=== PATIENT | female | born 1980 | race Caucasian/White ===

== ENCOUNTER → 2017-11-06 | Outpatient (CLI) | payer OTHER ==
[~2017-11-06] MED LIST: AC325T PO; ACHD5005 PO; DOCU100C37 PO; FAMO20TA5 PO; FERR-57 PO; HYDR-3714 PO; IBUP-1773 PO; Ibuprofen PO; PREN1TAB19 PO
--- NOTE | 2017-11-06 12:51 | Diagnostic Imaging Report ---
INDICATION: IUD with nonvisualized strings on physical exam. TECHNIQUE: Transabdominal and transvaginal sonography was performed. FINDINGS: The uterus measures 7.7 x 3.9 x 4.3 cm. There is an IUD within the endometrial canal; however, the inferior component of the IUD does appear to protrude into the myometrium towards the right side. No perforation is seen. Endometrial thickness is 4 mm. The right ovary measures 1.8 x 2.5 x 2.4 cm and the left ovary measures 2.6 x 2.5 x 2.8 cm. There are small follicles bilaterally. Both ovaries demonstrate normal blood flow. No adnexal mass or free fluid is seen. IMPRESSION: Endometrial IUD appears to have the inferior component extending into the uterine myometrium, as described, but no full-thickness uterine perforation is seen. Dictated by: Dictated on workstation # [id number]
== END ==
LOC: RAD 09:39
PROVIDERS: ATTEND Obstetrics & Gynecology
DX: T83.32XA Displacement of intrauterine contraceptive device, initial encounter (principal)
CPT/HCPCS: 76830; 76856

== ENCOUNTER 2018-01-13 05:38 | Outpatient (CLI) | payer OTHER ==
[~2018-01-13] VITALS: Ht 162.6 cm; Wt 63.7 kg
[2018-01-13] MEDS ORDERED: PHEN-483 PO (13:25)
[2018-01-22] MEDS ORDERED: ACHD5005 PO (07:15)
[2018-01-22] MEDS ORDERED: IBUP-1773 PO (07:15)
== END 2018-01-13 13:45 ==
LOC: PREOP 05:38
PROVIDERS: ATTEND Obstetrics & Gynecology
DX: Z01.818 Encounter for other preprocedural examination (principal); R10.2 Pelvic and perineal pain

== ENCOUNTER 2018-05-01 14:46 | Outpatient (CLI) | payer OTHER ==
[~2018-05-01] VITALS: Ht 162.6 cm; Wt 71.2 kg
[~2018-05-01 14:46] MED LIST changes: +PHEN-483 PO
[2018-05-01 14:54] VITALS: BP 143/91
== END 2018-05-01 15:07 | disposition home or self-care (01) ==
LOC: PREOP 14:46
PROVIDERS: ATTEND Obstetrics & Gynecology
DX: Z01.818 Encounter for other preprocedural examination (principal)
CPT/HCPCS: 87081

== ENCOUNTER → 2022-03-15 | Outpatient (CLI) | payer OTHER ==
[~2022-03-15] MED LIST changes: +HYDR-34 PO; +IBUP-844 PO; +SIME80TA16 PO
--- NOTE | 2022-03-15 10:01 | Diagnostic Imaging Report ---
Indication: Routine screening. No prior mammograms are available for comparison. This is a baseline study. 2-D and 3-D bilateral screening mammography was performed with CAD. CAD is utilized. The current study was also evaluated with a Computer Aided Detection (CAD) system. Both breasts are heterogeneously dense, limiting the sensitivity of mammography. No mass or malignant-appearing microcalcifications are seen. Axillae are unremarkable. IMPRESSION: BI-RADS Category 1 No mammographic features suspicious for malignancy are identified. ACR BI-RADS Category 1: Negative. Result letter will be mailed to the patient. Note: At least 10% of breast cancer is not imaged by mammography. Dictated by: Dictated on workstation # [id number]
== END ==
LOC: RAD 08:01
PROVIDERS: ATTEND Obstetrics & Gynecology
DX: Z12.31 Encounter for screening mammogram for malignant neoplasm of breast (principal)
CPT/HCPCS: 77063; 77067

== ENCOUNTER → 2023-04-25 | Outpatient (CLI) | payer OTHER ==
--- NOTE | 2023-04-25 13:08 | Diagnostic Imaging Report ---
Indication: Routine screening. Comparison is made with prior mammogram 03/15/2022. 2-D and 3-D bilateral screening mammography was performed with CAD. Both breasts are heterogeneously dense, limiting the sensitivity of mammography. The parenchymal pattern is stable. No mass or malignant-appearing microcalcifications are seen. Axillae are unremarkable. IMPRESSION: BI-RADS Category 1 No mammographic features suspicious for malignancy are identified. ACR BI-RADS Category 1: Negative. Result letter will be mailed to the patient. Note: At least 10% of breast cancer is not imaged by mammography. Dictated by: Dictated on workstation # [id number]
== END ==
LOC: RAD 08:50
PROVIDERS: ATTEND Obstetrics & Gynecology
DX: Z12.31 Encounter for screening mammogram for malignant neoplasm of breast (principal)
CPT/HCPCS: 77063; 77067

== ENCOUNTER 2023-05-21 16:18 | Observation (INO) | payer OTHER ==
[~2023-05-21] VITALS: Ht 162 cm; Wt 69.4 kg
[2023-05-21] MEDS ORDERED: KETOROLAC INJ 15 MG/ML VIAL IVP ONE (16:45)
[2023-05-21] MEDS ORDERED: NS IV 1000 ML 1,000 ML IV SCH ×2 (16:45→17:45)
[2023-05-21] MEDS ORDERED: ONDANSETRON INJECTION 4 MG/2 ML (SDV) IVP ONE (16:45)
[2023-05-21 16:48] LABS: BASOPHILS # (AUTO) 0.1 10^3/uL (0.0-0.1); BASOPHILS % (AUTO) 0 % (0-10); EOSINOPHILS # (AUTO) 0.1 10^3/uL (0.0-0.3); EOSINOPHILS % (AUTO) 1 % (0-10); HEMATOCRIT 33 % (35-52); HEMOGLOBIN 11.2 g/dL (11.5-16.0); LYMPHOCYTES # (AUTO) 1.7 10^3/uL (1.0-4.0); LYMPHOCYTES % (AUTO) 10 % (12-44); MEAN CORPUSCULAR HEMOGLOBIN 28 pg (25-34); MEAN CORPUSCULAR HGB CONC 34 g/dL (32-36); MEAN CORPUSCULAR VOLUME 82 fL (80-99); MEAN PLATELET VOLUME 10.1 fL (9.0-12.2); MONOCYTES # (AUTO) 1.8 10^3/uL (0.0-1.0); MONOCYTES % (AUTO) 10 % (0-12); NEUTROPHILS # (AUTO) 13.2 10^3/uL (1.8-7.8); NEUTROPHILS % (AUTO) 78 % (42-75); PLATELET COUNT 342 10^3/uL (130-400); WHITE BLOOD COUNT 17.1 10^3/uL (4.3-11.0)
--- NOTE | 2023-05-21 16:59 | ED Abdominal Pain ---
General Chief Complaint: Fever-Adult/Adol Stated Complaint: FEVER N/V/D ABD PAIN Nursing Triage Note: PT AMB TO [facility] 6 WITH C/O FEVER SINCE LAST FRIDAY, ABD PAIN STARTING FRIDAY. PT GIVEN FLUIDS AND ZOFRAN AT [facility] YESTERADY. PT STATES HER FEVER WAS 104 TODAY Source of Information: Patient Exam Limitations: No Limitations History of Present Illness Date Seen by Provider: May 21, 2023 Time Seen by Provider: 16:30 Initial Comments 42-year-old female presents to the ER with complaints of not feeling well since evening, 05/15/2023. She reports she started having diarrhea on , and then developed a fever on Friday and left lower and left upper quadrant abdominal pain. States she is now having pain in her entire abdomen. She also reports vomiting starting yesterday. She denies dysuria. She was seen at [facility] yesterday and told she had a viral gastroenteritis. They gave her IV fluids and Zofran. They tested her for flu which was negative, they were unable to test her for COVID because they did not have any tests. Allergies and Home Medications Allergies Coded Allergies: No Known Drug Allergies (Unverified , 01/13/18) Patient Home Medication List Home Medication List Reviewed: Yes Cephalexin (Cephalexin) 500 Mg Tablet, 500 MG PO BID Prescribed by: NEELAM HALEY on 05/23/23 1058 Discontinued Medications Docusate Sodium (Docusate Sodium) 100 Mg Capsule, 100 MG PO BID PRN for CONSTIPATION-1ST LINE Discontinued Reason: No Longer Taking Prescribed by: KATHY SAUCEDA on 05/07/18917 Last Action: Discontinued Hydrocodone Bit/Acetaminophen (Lortab 7.5 Mg Tablet) 1 Ea Tablet, 2 EA PO Q6H PRN for Pain-See Instructions Discontinued Reason: No Longer Taking Prescribed by: KATHY SAUCEDA on 05/07/18917 Last Action: Discontinued Ibuprofen (Ibu) 600 Mg Tablet, 600 MG PO Q6H PRN for PAIN-MODERATE Discontinued Reason: No Longer Taking Prescribed by: KATHY SAUCEDA on 05/07/18917 Last Action: Discontinued Simethicone (Simethicone) 80 Mg Tab.chew, 40 MG PO TID PRN for INDIGESTION 2ND LINE Discontinued Reason: No Longer Taking Prescribed by: KATHY SAUCEDA on 05/07/18917 Last Action: Discontinued Review of Systems Review of Systems Constitutional: see HPI Past Guasqlr-Nrowya-Lhfyhc Hx Patient Social History Tobacco Use?: Yes Tobacco type used: Cigarettes Substance use?: No Alcohol Use?: No Pt feels they are or have been: No Immunizations Up To Date Tetanus Booster (TDap): Less than 5yrs PED Vaccines UTD: No Seasonal Allergies Seasonal Allergies: No Past Medical History Surgery/Hospitalization HX: X3, PARTIAL HYST Surgeries: Yes (LEEP, C/S X3, salpingectomy, wisdom teeth) Respiratory: No Cardiac: No Neurological: No Reproductive Disorders: Yes (PELVIC PAIN) Female Reproductive Disorders: Denies Sexually Transmitted Disease: No HIV/AIDS: No Genitourinary: No Gastrointestinal: Yes Chronic Constipation Musculoskeletal: No Endocrine: No Loss of Vision: Denies Hearing Impairment: Denies Cancer: No Psychosocial: No Integumentary: No Blood Disorders: Yes (ANEMIA-DURING ) Adverse Reaction/Blood Tranf: No (N/A) Family Medical History Diabetes mellitus 19 FATHER Hypertension 19 MOTHER Physical Exam Vital Signs Vital Signs - First Documented 05/21/23 16:25 Temp 37.3 Pulse 87 Resp 16 B/P (MAP) 125/92 (103) Pulse Ox 98 Capillary Refill : Height/Weight/BMI Height: 5'4.00" Weight: 157lbs. 0.0oz. 71.450800jn; 24.00 BMI Method: General Appearance: WD/WN, no apparent distress Neck: supple, normal inspection Respiratory: lungs clear, normal breath sounds, no respiratory distress, no accessory muscle use Cardiovascular: regular rate, rhythm Gastrointestinal: normal bowel sounds, soft; No guarding, No rebound; tenderness (All 4 quadrants) Extremities: normal range of motion, normal inspection Neurologic/Psychiatric: alert, normal mood/affect Skin: normal color, warm/dry Focused Exam Lactate Level 05/21/23 18:11: Lactic Acid Level 0.92 Lactic Acid Level Laboratory Tests Test 05/21/23 18:11 Lactic Acid Level 0.92 MMOL/L (0.50-2.00) Progress/Results/Core Measures Results/Orders Lab Results Laboratory Tests Test 05/21/23 16:40 05/21/23 17:02 05/21/23 18:11 Range/Units White Blood Count 17.1 H 4.3-11.0 10^3/uL Red Blood Count 3.99 3.80-5.11 10^6/uL Hemoglobin 11.2 L 11.5-16.0 g/dL Hematocrit 33 L 35-52 % Mean Corpuscular Volume 82 80-99 fL Mean Corpuscular Hemoglobin 28 25-34 pg Mean Corpuscular Hemoglobin Concent 34 32-36 g/dL Red Cell Distribution Width 14.0 10.0-14.5 % Platelet Count 342 130-400 10^3/uL Mean Platelet Volume 10.1 9.0-12.2 fL Immature Granulocyte % (Auto) 1 % Neutrophils (%) (Auto) 78 H 42-75 % Lymphocytes (%) (Auto) 10 L 12-44 % Monocytes (%) (Auto) 10 0-12 % Eosinophils (%) (Auto) 1 0-10 % Basophils (%) (Auto) 0 0-10 % Neutrophils # (Auto) 13.2 H 1.8-7.8 10^3/uL Lymphocytes # (Auto) 1.7 1.0-4.0 10^3/uL Monocytes # (Auto) 1.8 H 0.0-1.0 10^3/uL Eosinophils # (Auto) 0.1 0.0-0.3 10^3/uL Basophils # (Auto) 0.1 0.0-0.1 10^3/uL Immature Granulocyte # (Auto) 0.1 0.0-0.1 10^3/uL Sodium Level 135 135-145 MMOL/L Potassium Level 2.8 L 3.6-5.0 MMOL/L Chloride Level 103 98-107 MMOL/L Carbon Dioxide Level 19 L 21-32 MMOL/L Anion Gap 13 5-14 MMOL/L Blood Urea Nitrogen 39 H 7-18 MG/DL Creatinine 1.99 H 0.60-1.30 MG/DL Estimat Glomerular Filtration Rate 32 BUN/Creatinine Ratio 20 Glucose Level 152 H 70-105 MG/DL Calcium Level 9.4 8.5-10.1 MG/DL Corrected Calcium 10.0 8.5-10.1 MG/DL Total Bilirubin 0.5 0.1-1.0 MG/DL Aspartate Amino Transf (AST/SGOT) 37 H 5-34 U/L Alanine Aminotransferase (ALT/SGPT) 84 H 0-55 U/L Alkaline Phosphatase 200 H 40-136 U/L C-Reactive Protein High Sensitivity 28.93 H 0.00-0.50 MG/DL Total Protein 6.8 6.4-8.2 GM/DL Albumin 3.3 3.2-4.5 GM/DL Lipase 21 8-78 U/L Influenza Type A (RT-PCR) Not Detected Not Detecte Influenza Type B (RT-PCR) Not Detected Not Detecte SARS-CoV-2 RNA (RT-PCR) Not Detected Not Detecte Urine Color YELLOW Urine Clarity CLOUDY Urine pH 6.0 5-9 Urine Specific Bascom 1.015 L 1.016-1.022 Urine Protein 2+ H NEGATIVE Urine Glucose (UA) NEGATIVE NEGATIVE Urine Ketones NEGATIVE NEGATIVE Urine Nitrite NEGATIVE NEGATIVE Urine Bilirubin 1+ H NEGATIVE Urine Urobilinogen 2.0 < = 1.0 MG/DL Urine Leukocyte Esterase 3+ H NEGATIVE Urine RBC (Auto) 2+ H NEGATIVE Urine RBC 5-10 H /HPF Urine WBC TNTC H /HPF Urine Squamous Epithelial Cells 5-10 /HPF Urine Crystals NONE /LPF Urine Bacteria MODERATE H /HPF Urine Casts NONE /LPF Urine Mucus NEGATIVE /LPF Urine Culture Indicated YES Lactic Acid Level 0.92 0.50-2.00 MMOL/L My Orders Orders - HANDY FUENTES APRN Comprehensive Metabolic Panel (05/21/23 16:29) Lipase (05/21/23 16:29) Ua Culture If Indicated (05/21/23 16:29) Urine Bedside (05/21/23 16:29) Ed Iv/Invasive Line Start (05/21/23 16:29) Cbc With Automated Diff (05/21/23 16:29) Hs C Reactive Protein (05/21/23 16:34) Ns Iv 1000 Ml (Ns Iv 1000 Ml) (05/21/23 16:45) Covid 19 Inhouse Test (05/21/23 16:34) Influenza A And B By Pcr (05/21/23 16:34) Ondansetron Injection (Ondansetron Inj (05/21/23 16:45) Ketorolac Injection (Ketorolac Injection (05/21/23 16:45) Urine Culture (05/21/23 17:02) Blood Culture (05/21/23 17:40) Lactic Acid Analyzer (05/21/23 17:40) Ct Abdomen/Pelvis Wo (05/21/23 17:43) Ns Iv 1000 Ml (Ns Iv 1000 Ml) (05/21/23 17:45) Ceftriaxone Iv/Im (Ceftriaxone Iv/Im) (05/21/23 17:45) Potassium Chloride (Tablet) (Potassium C (05/21/23 18:30) Ed Admission (Communication) (05/21/23 18:22) Medications Given in ED Current Medications Medications Dose Ordered Sig/Nohemi Route Start Time Stop Time Status Last Admin Dose Admin Ketorolac Tromethamine 15 mg ONCE ONCE IVP 05/21/23 16:45 05/21/23 16:46 DC 05/21/23 16:59 15 MG Ondansetron HCl 4 mg ONCE ONCE IVP 05/21/23 16:45 05/21/23 16:46 DC 05/21/23 16:59 4 MG Potassium Chloride 40 meq ONCE ONCE PO 05/21/23 18:30 05/21/23 18:31 DC 05/21/23 18:30 40 MEQ Vital Signs/I&O 05/21/23 16:25 Temp 37.3 Pulse 87 Resp 16 B/P (MAP) 125/92 (103) Pulse Ox 98 Blood Pressure Mean: 103 Progress Progress Note : Progress Note Patient seen and evaluated, resting in bed, no acute distress. Based on exam and symptoms, differential diagnosis includes but is not limited to COVID, flu, gastroenteritis, appendicitis, pyelonephritis. Work-up initiated including CBC, CMP, lipase, UA, CT abdomen pelvis. IV fluids, Zofran, Toradol ordered. 1830 Labs reviewed. CBC shows elevated WBC 17.1. CMP shows decreased potassium 2.8. Oral potassium has also been ordered. Elevated BUN 39, elevated creatinine 1.99, decreased GFR 32, glucose elevated 152, AST and ALT slightly elevated. Alkaline phosphatase elevated 200. CRP elevated 28.93. Lipase normal. Urinalysis shows 2+ protein, 1+ bilirubin, 3+ leukocytes, 2+ RBCs, too many to count WBCs, moderate bacteria. COVID and flu negative. Lactic acid and blood cultures x2 ordered due to abnormal labs. Lactic acid was normal. CT abdomen pelvis was switched to a noncontrast scan due to decreased kidney function. It shows asymmetric edematous enlargement of the left kidney with mild hydronephrosis and asymmetric stranding of the perinephric fat. No obstructive calculi are seen. Findings could be due to recent passage of a kidney stone or pyelonephritis. The appendix cannot be adequately identified, but there is no pericecal inflammation. Second liter of IV fluid has been ordered for decreased kidney function. No previous CMP available for comparison, but patient declines any past medical history or previous decreased kidney function, decreased kidney function is likely acute and due to dehydration and infection. I called and spoke with Dr. Haley, hospitalist, for admission for pyelonephritis, acute kidney injury, and hypokalemia. She agrees to admit patient to [facility] for observation. Dr. Haley would like me to place bridge orders. Departure Communication (Admissions) Time/Spoke to Admitting Phy: 18:19 Dr. Haley, hospitalist, see progress note. Impression Primary Impression: Pyelonephritis Additional Impressions: Acute kidney injury Hypokalemia Disposition: ADMITTED INPATIENT Condition: Stable Admissions Decision to Admit Reason: Admit from ER (General) Decision to Admit/Date: May 21, 2023 Time/Decision to Admit Time: 18:19 Departure-Patient Inst. Referrals: NO,LOCAL PHYSICIAN (PCP/Family) Primary Care Physician Scripts Cephalexin (Cephalexin) 500 Mg Tablet 500 MG PO BID, #10 TAB Prov: NEELAM HALEY MD 05/23/23 HANDY FUENTES APRN May 21, 2023 16:59
[2023-05-21 17:29] LABS: ALBUMIN 3.3 GM/DL (3.2-4.5); BILIRUBIN,TOTAL 0.5 MG/DL (0.1-1.0); CALCIUM 9.4 MG/DL (8.5-10.1); CREATININE SERUM 1.99 MG/DL (0.60-1.30); POTASSIUM 2.8 MMOL/L (3.6-5.0); TOTAL PROTEIN 6.8 GM/DL (6.4-8.2)
[2023-05-21 17:36] LABS: CLARITY,URINE CLOUDY; COLOR,URINE YELLOW
[2023-05-21 17:37] LABS: BACTERIA,URINE MODERATE /HPF; BILIRUBIN,URINE 1+ (NEGATIVE); GLUCOSE, URINE (UA) NEGATIVE (NEGATIVE); KETONES,URINE NEGATIVE (NEGATIVE); LEUKOCYTE ESTERASE ,URINE 3+ (NEGATIVE); NITRITE,URINE NEGATIVE (NEGATIVE); PROTEIN,URINE 2+ (NEGATIVE); WBC,URINE TNTC /HPF
[2023-05-21] MEDS ORDERED: cefTRIAXone IV/IM 1,000 MG in NS (IVPB) 50 ML 50 ML IV ONE (17:45)
--- NOTE | 2023-05-21 18:07 | Diagnostic Imaging Report ---
PROCEDURE: CT abdomen and pelvis without contrast. TECHNIQUE: Multiple contiguous axial images were obtained through the abdomen and pelvis without the use of intravenous contrast. Auto Exposure Controls were utilized during the CT exam to meet ALARA standards for radiation dose reduction. INDICATION: Fever. Abdominal pain. COMPARISON: None. FINDINGS: Included portions of the lung bases are clear. CT ABDOMEN: There is asymmetric edematous enlargement of the left kidney. There is also subtle asymmetric stranding of the perinephric fat on the left. There may be slight left-sided hydronephrosis. Despite this, no renal or ureteral calculi are seen on either side. The adrenal glands, spleen, pancreas, and liver have an unremarkable noncontrast CT appearance. Small bowel loops are nondilated. Normal appendix cannot be adequately identified, but there is no pericecal inflammation. There is no loculated fluid collection, free fluid, or free air within the abdomen. No abnormal mesenteric or retroperitoneal adenopathy is seen. Osseous structures show no acute abnormalities. CT PELVIS: Urinary bladder is unopacified. No calculi are seen within the urinary bladder. There is no loculated fluid collection, free fluid, or free air. No abnormal adenopathy is identified. Osseous structures show no acute abnormalities. IMPRESSION: 1. Asymmetric edematous enlargement of the left kidney with mild hydronephrosis and asymmetric stranding of the perinephric fat. No obstructive calculi are seen. Findings could be on the basis of recent passage of calculus. UTI may have a similar appearance. Clinical correlation is advised. Dictated by: Dictated on workstation # [id number]
[2023-05-21] MEDS ORDERED: POTASSIUM CHLORIDE 20 MEQ TABLET PO ONE (18:30)
[2023-05-21] MEDS ORDERED: KETOROLAC INJ 15 MG/ML VIAL IV PRN (19:45)
[2023-05-21] MEDS ORDERED: PROMETHAZINE INJ 25 MG/ML VIAL IV PRN (19:45)
[2023-05-21] MEDS ORDERED: ACETAMINOPHEN 500 MG TABLET PO PRN (19:45)
[2023-05-21] MEDS ORDERED: fentaNYL INJECTION 100 MCG/2 ML VIAL IV PRN (19:45)
[2023-05-21 20:10] VITALS: BP 120/84
[2023-05-21] MEDS: NS IV 1000 ML 1,000 ML IV SCH ×2 (21:03→23:11)
[2023-05-21] MEDS: HYDROcodone/ACETAMINOPHEN 5 MG/325 MG TABLET PO PRN (21:09)
[2023-05-21 23:07] VITALS: BP 121/73
[2023-05-22] MEDS: ONDANSETRON INJECTION 4 MG/2 ML (SDV) IV PRN ×2 (02:40→16:46)
[2023-05-22 03:50] VITALS: BP 147/83
[2023-05-22 06:04] LABS: BASOPHILS % (AUTO) 0 % (0-10); EOSINOPHILS # (AUTO) 0.1 10^3/uL (0.0-0.3); EOSINOPHILS % (AUTO) 1 % (0-10); HEMATOCRIT 28 % (35-52); HEMOGLOBIN 9.6 g/dL (11.5-16.0); LYMPHOCYTES # (AUTO) 1.5 10^3/uL (1.0-4.0); LYMPHOCYTES % (AUTO) 10 % (12-44); MEAN CORPUSCULAR HEMOGLOBIN 28 pg (25-34); MEAN CORPUSCULAR HGB CONC 34 g/dL (32-36); MEAN CORPUSCULAR VOLUME 82 fL (80-99); MEAN PLATELET VOLUME 10.4 fL (9.0-12.2); MONOCYTES # (AUTO) 1.4 10^3/uL (0.0-1.0); MONOCYTES % (AUTO) 10 % (0-12); NEUTROPHILS # (AUTO) 11.2 10^3/uL (1.8-7.8); NEUTROPHILS % (AUTO) 78 % (42-75); PLATELET COUNT 342 10^3/uL (130-400); WHITE BLOOD COUNT 14.3 10^3/uL (4.3-11.0)
[2023-05-22] MEDS: NS IV 1000 ML 1,000 ML IV SCH (06:10)
[2023-05-22 06:30] LABS: ALBUMIN 2.9 GM/DL (3.2-4.5); BILIRUBIN,TOTAL 0.5 MG/DL (0.1-1.0); CALCIUM 8.3 MG/DL (8.5-10.1); CREATININE SERUM 1.28 MG/DL (0.60-1.30); POTASSIUM 3.2 MMOL/L (3.6-5.0)
[2023-05-22 06:59] LABS: BAND NEUTROPHILS 1 %; EOSINOPHILS % (MANUAL) 1 %; LYMPHOCYTES % (MANUAL) 10 %; MONOCYTES % (MANUAL) 13 %; NEUTROPHILS % (MANUAL) 75 %
[2023-05-22 07:00] LABS: RBC MORPH NORMAL
[2023-05-22 07:41] VITALS: BP 154/95
--- NOTE | 2023-05-22 10:32 | History & Physical-Hospitalist ---
History of Present Illness HPI/Chief Complaint Patient is a 42-year-old female with no past medical history who presented to the emergency department due to fever. She reports that her symptoms started on May 15 when she had diarrhea. The next day she developed fever and that has been continuing off and on for the past week. She started vomiting yesterday and was seen at [facility] where she was given Zofran and fluids and told she had a viral gastroenteritis and sent home. She continued to worsen and developed a temperature of 104 so decided to seek care in the emergency department. Was found to have a urinary tract infection and CT of her abdomen was done which was concerning for pyelonephritis. She was admitted for IV abx. She reports feeling better this morning but no back to normal yet. Source: patient Date Seen 05/22/23 Time Seen by a Provider: 10:26 Attending Physician No,Local Physician PCP Admitting Physician: Neelam Collins MD Attending Physician: Neelam Collins MD Referring Physician Date of Admission May 21, 2023 at 19:09 Home Medications & Allergies Home Medications Reviewed patient Home Medication Reconciliation performed by pharmacy medication reconciliations textile science technician and/or nursing. Patients Allergies have been reviewed. Allergies Allergies Coded Allergies No Known Drug Allergies (Unverified01/13/18) Past Rxxkplt-Msdsux-Jlxaag Hx Patient Social History Employed/Student: employed Tobacco Use?: No Tobacco type used: Cigarettes Smoking Status: Current Everyday Smoker Use of E-Cig and/or Vaping dev: No Substance use?: No Alcohol Use?: No Additional Alcohol Comments: QUIT ALCOHOL 2 WEEKS AGO Pt feels they are or have been: No Immunizations Up To Date Date of Influenza Vaccine: Jul 01, 2014 Tetanus Booster (TDap): Unknown Hepatitis A: No Hepatitis B: No PED Vaccines UTD: No Seasonal Allergies Seasonal Allergies: No Current Status status: No status: No Advance Directives: No Communicates: Verbally Primary Language: Albanian Preferred Spoken Language: Albanian Is interpretation needed?: No Implanted or Applied Medical D: None Past Medical History Sexually Transmitted Disease: No HIV/AIDS: No Chronic Constipation Loss of Vision: Denies Hearing Impairment: Denies Blood Disorders: Yes (ANEMIA-DURING ) Adverse Reaction/Blood Tranf: No (N/A) na Family Medical History Reviewed Nursing Family Hx Diabetes mellitus 19 FATHER Hypertension 19 MOTHER No Pertinent Family Hx Review of Systems Constitutional: see HPI Physical Exam Physical Exam Vital Signs Vital Signs - First Documented 05/21/23 05/21/23 16:25 19:15 Temp 37.3 Pulse 87 Resp 16 B/P (MAP) 125/92 (103) Pulse Ox 98 O2 Delivery Room Air Capillary Refill : Height, Weight, BMI Height: 5'4.00" Weight: 157lbs. 0.0oz. 71.964700ih; 26.44 BMI Method: General Appearance: No Apparent Distress, WD/WN Respiratory: Lungs Clear, No Respiratory Distress Cardiovascular: Regular Rate, Rhythm, No Murmur Gastrointestinal: Normal Bowel Sounds, Soft Neurologic/Psychiatric: Alert, Oriented x3 Results Results/Procedures Labs Laboratory Tests 05/21/23 16:40 05/22/23 05:32 Patient resulted labs reviewed. Imaging: Reviewed Imaging Report [facility] [employer] [place], [place] NAME: DAMARIS WILCOX [facility] REC#: [id number] PT STATUS: REG ER : 1980 PHYSICIAN: HANDY FUENTES APRN ADMIT DATE: 05/21/23/ER Draft Date of Exam:05/21/23 CT ABDOMEN/PELVIS WO PROCEDURE: CT abdomen and pelvis without contrast. TECHNIQUE: Multiple contiguous axial images were obtained through the abdomen and pelvis without the use of intravenous contrast. Auto Exposure Controls were utilized during the CT exam to meet ALARA standards for radiation dose reduction. INDICATION: Fever. Abdominal pain. COMPARISON: None. FINDINGS: Included portions of the lung bases are clear. CT ABDOMEN: There is asymmetric edematous enlargement of the left kidney. There is also subtle asymmetric stranding of the perinephric fat on the left. There may be slight left-sided hydronephrosis. Despite this, no renal or ureteral calculi are seen on either side. The adrenal glands, spleen, pancreas, and liver have an unremarkable noncontrast CT appearance. Small bowel loops are nondilated. Normal appendix cannot be adequately identified, but there is no pericecal inflammation. There is no loculated fluid collection, free fluid, or free air within the abdomen. No abnormal mesenteric or retroperitoneal adenopathy is seen. Osseous structures show no acute abnormalities. CT PELVIS: Urinary bladder is unopacified. No calculi are seen within the urinary bladder. There is no loculated fluid collection, free fluid, or free air. No abnormal adenopathy is identified. Osseous structures show no acute abnormalities. IMPRESSION: 1. Asymmetric edematous enlargement of the left kidney with mild hydronephrosis and asymmetric stranding of the perinephric fat. No obstructive calculi are seen. Findings could be on the basis of recent passage of calculus. UTI may have a similar appearance. Clinical correlation is advised. Dictated on workstation # [id number] Dict: 05/21/23 1757 Trans: 05/21/23 1806 [id number] Interpreted by: SHERI SANTIAGO MD Electronically signed by: Assessment/Plan Admission Diagnosis Sepsis due to pyelonephritis Admission Status: Observation Assessment and Plan Sepsis due to pyelonephritis- POA RODO transaminitis leukocytosis with fever- improved today Continue IV abx Await cultures (urine growing e coli) Creatinine improved trend liver enzymes likely due to sepsis Diagnosis/Problems Diagnosis/Problems (1) Sepsis Qualifiers: Sepsis type: Escherichia coli Sepsis acute organ dysfunction status: with acute organ dysfunction Severe sepsis acute organ dysfunction type: acute renal failure Acute renal failure type: unspecified Severe sepsis shock status: without septic shock Qualified Codes: A41.51 - Sepsis due to Escherichia coli [e. coli]; R65.20 - Severe sepsis without septic shock; N17.9 - Acute kidney failure, unspecified (2) Pyelonephritis (3) Acute kidney injury (4) Hypokalemia NEELAM COLLINS MD May 22, 2023 10:31
[2023-05-22] MEDS: HYDROcodone/ACETAMINOPHEN 5 MG/325 MG TABLET PO PRN (11:01)
[2023-05-22 12:39] VITALS: BP 145/89
[2023-05-22 15:35] VITALS: BP 137/72
[2023-05-22] MEDS ORDERED: cefTRIAXone 1 GM/NS 50 ML IVPB IV SCH ×2 (17:00)
[2023-05-22 19:07] VITALS: BP 133/70
[2023-05-22 23:48] VITALS: BP 124/60
[2023-05-23 03:33] VITALS: BP 140/68
[2023-05-23 06:08] LABS: HEMATOCRIT 29 % (35-52); MEAN CORPUSCULAR HEMOGLOBIN 27 pg (25-34); MEAN CORPUSCULAR HGB CONC 34 g/dL (32-36); MEAN CORPUSCULAR VOLUME 80 fL (80-99); MEAN PLATELET VOLUME 10.1 fL (9.0-12.2); PLATELET COUNT 447 10^3/uL (130-400); WHITE BLOOD COUNT 14.7 10^3/uL (4.3-11.0)
[2023-05-23 06:19] LABS: POTASSIUM 3.3 MMOL/L (3.6-5.0)
[2023-05-23 06:20] LABS: CALCIUM 9.3 MG/DL (8.5-10.1)
[2023-05-23 06:25] LABS: CREATININE SERUM 0.93 MG/DL (0.60-1.30)
[2023-05-23 07:21] VITALS: BP 157/83
[2023-05-23 08:01] LABS: ALANINE AMINOTRANSFERASE 115 U/L (0-55)
[2023-05-23] MEDS ORDERED: CEPH500T PO (10:58)
--- NOTE | 2023-05-23 10:59 | Discharge Inst-Simple/Standard ---
Discharge Inst-Standard Discharge Medications New, Converted or Re-Newed RX: Transmitted to Pharmacy Patient Instructions/Follow Up Plan of Care/Instructions/FU: Please continue to take your medications as written. Please follow up with your primary care doctor to follow up this hospital stay. Activity as Tolerated: Yes Discharge Diet: No Restrictions Return to The Hospital For: Chest pain, shortness of breath, fever, weakness, if you feel you are getting worse. NEELAM COLLINS MD May 23, 2023 10:58
--- NOTE | 2023-05-23 11:19 | Discharge Summary ---
Diagnosis/Chief Complaint Date of Admission May 21, 2023 at 19:09 Date of Discharge Discharge Date: May 23, 2023 Admission Diagnosis Sepsis due to pyelonephritis Primary Care No,Local Physician Discharge Diagnosis (1) Sepsis (2) Pyelonephritis (3) Acute kidney injury (4) Hypokalemia Discharge Summary Discharge Physical Exam Allergies: Coded Allergies: No Known Drug Allergies (Unverified , 01/13/18) Vitals & I&Os Vital Signs Date Time Temp Pulse Resp B/P (MAP) Pulse Ox O2 Delivery O2 Flow Rate FiO2 05/23/23 11:22 05/23/23 08:30 Room Air 05/23/23 07:21 36.7 73 18 97 General Appearance: No Apparent Distress, WD/WN Respiratory: Lungs Clear Cardiovascular: Regular Rate, Rhythm, No Murmur Neurologic/Psychiatric: Alert, Oriented x3 Hospital Course She was admitted to the hospital secondary to sepsis and pyelonephritis. She also had an elevated creatinine. She was treated with IV antibiotics and IV fl uids and her creatinine returned to baseline. Urine cultures returned E. coli that was pansensitive. Her leukocytosis improved. She was feeling much better and requesting discharge home. She was discharged home to complete course of antibiotics at home and follow-up with her primary care physician. Of note she did have very mildly elevated liver enzymes which were stable and will need to be followed as an outpatient. Labs (last 24 hrs) Laboratory Tests 05/23/23 05:33: White Blood Count 14.7H, Red Blood Count 3.65L, Hemoglobin 10.0L, Hematocrit 29L , Mean Corpuscular Volume 80, Mean Corpuscular Hemoglobin 27, Mean Corpuscular Hemoglobin Concent 34, Red Cell Distribution Width 14.0, Platelet Count 447H, Mean Platelet Volume 10.1, Sodium Level 137, Potassium Level 3.3L, Chloride Level 106, Carbon Dioxide Level 20L, Anion Gap 11, Blood Urea Nitrogen 13, Creatinine 0.93, Estimat Glomerular Filtration Rate 79, BUN/Creatinine Ratio 14, Glucose Level 97, Calcium Level 9.3 05/23/23 07:43: Aspartate Amino Transf (AST/SGOT) 66H, Alanine Aminotransferase (ALT/SGPT) 115H Microbiology 05/21/23 Blood Culture - Preliminary, Resulted 05/21/23 Urine Culture - Final, Complete Escherichia coli Patient resulted labs reviewed. Pending Labs Laboratory Tests 05/23/23 05:33: White Blood Count 14.7, Red Blood Count 3.65, Hemoglobin 10.0, Hematocrit 29, Mean Corpuscular Volume 80, Mean Corpuscular Hemoglobin 27, Mean Corpuscular Hemoglobin Concent 34, Red Cell Distribution Width 14.0, Platelet Count 447, Mean Platelet Volume 10.1, Sodium Level 137, Potassium Level 3.3, Chloride Level 106, Carbon Dioxide Level 20, Anion Gap 11, Blood Urea Nitrogen 13, Creatinine 0.93, Estimat Glomerular Filtration Rate 79, BUN/Creatinine Ratio 14, Glucose Level 97, Calcium Level 9.3 05/23/23 07:43: Aspartate Amino Transf (AST/SGOT) 66, Alanine Aminotransferase (ALT/SGPT) 115 Imaging: Reviewed Imaging Report Discussion & Recommendations Discharge Planning: >30 minutes discharge planning Discharge Home Medications: Active Scripts Active Cephalexin 500 Mg Tablet 500 Mg PO BID Instructions to patient/family Please see electronic discharge instructions given to patient. Problem Qualifiers (1) Sepsis: Sepsis type: Escherichia coli Sepsis acute organ dysfunction status: with acute organ dysfunction Severe sepsis acute organ dysfunction type: acute renal failure Acute renal failure type: unspecified Severe sepsis shock status: without septic shock Qualified Codes: A41.51 - Sepsis due to Escherichia coli [e. coli]; R65.20 - Severe sepsis without septic shock; N17.9 - Acute kidney failure, unspecified NEELAM COLLINS MD May 23, 2023 11:19
== END 2023-05-23 10:59 | disposition home or self-care (01) ==
LOC: EDUNIT# 16:18 → ER 16:19 → 4TH 19:09 → UNDOADMOB 19:09 → 4TH 19:27 → UNDODISOB 05-23 11:23
PROVIDERS: ADMIT Family Medicine; ATTEND Family Medicine
DX: A41.9 Sepsis, unspecified organism (principal); N12 Tubulo-interstitial nephritis, not specified as acute or chronic; N17.9 Acute kidney failure, unspecified; E87.6 Hypokalemia; R74.01 Elevation of levels of liver transaminase levels; F17.210 Nicotine dependence, cigarettes, uncomplicated
CPT/HCPCS: 74176; 80048; 80053 ×2; 81000; 83605; 83690; 84450; 84460; 84703; 85007; 85025; 85027 ×2; 86141; 87040; 87077; 87088; 87186; 87636; 96361 ×2; 96366; 96376; 99284; G0378; 36415

== ENCOUNTER → 2023-07-21 | Outpatient (CLI) | payer OTHER ==
[~2023-07-21] MED LIST changes: +CEPH500T PO
[2023-07-21 16:38] LABS: BASOPHILS % (AUTO) 0 % (0-10); EOSINOPHILS # (AUTO) 0.1 10^3/uL (0.0-0.3); EOSINOPHILS % (AUTO) 1 % (0-10); HEMATOCRIT 37 % (35-52); HEMOGLOBIN 12.6 g/dL (11.5-16.0); LYMPHOCYTES # (AUTO) 2.8 10^3/uL (1.0-4.0); LYMPHOCYTES % (AUTO) 29 % (12-44); MEAN CORPUSCULAR HEMOGLOBIN 28 pg (25-34); MEAN CORPUSCULAR HGB CONC 34 g/dL (32-36); MEAN CORPUSCULAR VOLUME 82 fL (80-99); MEAN PLATELET VOLUME 9.3 fL (9.0-12.2); MONOCYTES # (AUTO) 0.7 10^3/uL (0.0-1.0); MONOCYTES % (AUTO) 7 % (0-12); NEUTROPHILS % (AUTO) 62 % (42-75); PLATELET COUNT 368 10^3/uL (130-400); WHITE BLOOD COUNT 9.7 10^3/uL (4.3-11.0)
[2023-07-21 16:43] LABS: ALBUMIN 4.7 GM/DL (3.2-4.5); CHLORIDE 103 MMOL/L (98-107); POTASSIUM 3.6 MMOL/L (3.6-5.0); SODIUM 135 MMOL/L (135-145)
[2023-07-21 16:45] LABS: CALCIUM 9.8 MG/DL (8.5-10.1)
[2023-07-21 16:46] LABS: GLUCOSE 110 MG/DL (70-105); TOTAL PROTEIN 8.4 GM/DL (6.4-8.2)
[2023-07-21 16:47] LABS: CARBON DIOXIDE 23 MMOL/L (21-32)
[2023-07-21 16:48] LABS: BILIRUBIN,TOTAL 0.7 MG/DL (0.1-1.0)
[2023-07-21 16:49] LABS: ALKALINE PHOSPHATASE 77 U/L (40-136); CREATININE SERUM 0.95 MG/DL (0.60-1.30); GFR ESTIMATED 77
[2023-07-21 16:50] LABS: BUN/CREATININE RATIO 19
[2023-07-21 16:52] LABS: ALANINE AMINOTRANSFERASE 24 U/L (0-55)
== END ==
LOC: CARD 16:07
PROVIDERS: ATTEND Nurse Practitioner Family
DX: I10 Essential (primary) hypertension (principal)
CPT/HCPCS: 36415; 80053; 84443; 85025